=== PATIENT | female | born 2005 | race Caucasian/White ===

== ENCOUNTER 2024-02-01 21:38 | Emergency (ER) | payer SELFPAY ==
--- OUTSIDE RECORDS SUMMARY | 2024-02-01 21:41 | XMS REPORT | Continuity of Care Document ---
Author Name Unknown Address [address] [facility] [address] [place] [address] [facility] thconnect Address [address] [facility] 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 Ordering Clinician Indication Dosage Frequency Signature (SIG) Comments Components Source erythromyci n 5 mg/gram (0.5 %) eye ointment 08-01 00:00: 00 Yes 1(0.5 %) Aashish Roberson TAKE 1 TABLET DAILY. 2022-03 1 00:00: 00 08-01 00:00 :00 No 110 Aashish Roberson INJECT 1 ML INTRAMUSCUL SYED ONCE EVERY 3 MONTHS. 11-19 00:00: 00 08-01 00:00 :00 No 150 Aashish Roberson Vital Signs Vital Name Observation Time Observation Value Comments S ource BP Systolic 2023-08-26 15:03:00 113 mm[Hg] Scott Roberson BP Diastolic 2023-08-26 15:03:00 72 mm[Hg] [place] Roberson Weight Measured 2023-08-26 15:03:00 110.20 pounds Aashish Roberson Height Measured 2023-08-26 15:03:00 65.00 inches Aashish Roberson Body Temperature 2023-08-26 15:03:00 98.30 degrees Aashish Roberson Heart Rate 2023-08-26 15:03:00 63.00 /min Manuela en Miya Roberson Respiratory Rate 2023-08-26 15:03:00 19.00 /min Aashish Roberson BP Diastolic 2023-08-02 10:11:00 66 mm[Hg] [place] phen F Da Weight Measured 2023-08-02 10:11:00 112.40 pounds Aashish F Da Height Measured 2023-08-02 10:11:00 65.00 inches Aashish F Da Body Temperature 2023-08-02 10:11:00 97.40 degrees Aashish F Da Heart Rate 2023-08-02 10:11:00 102.00 /min Step hen F Da Respiratory Rate 2023-08-02 10:11:00 Aashish F Da BP Systolic 2023-08-02 10:11:00 109 mm[Hg] Step hen F Da BP Systolic 2023-06-06 16:34:00 107 mm[Hg] Step hen F Da BP Diastolic 2023-06-06 16:34:00 72 mm[Hg] [place] phen F Da Weight Measured 2023-06-06 16:34:00 158.73 pounds Aashish F Da Height Measured 2023-06-06 16:34:00 65.00 inches Aashish F Da Body Temperature 2023-06-06 16:34:00 98.10 degrees Aashish F Da Heart Rate 2023-06-06 16:34:00 63.00 /min Manuela en F Da Respiratory Rate 2023-06-06 16:34:00 16.00 /min Aashish F Da BP Systolic 2023-02-17 16:11:00 119 mm[Hg] Step hen F Da BP Diastolic 2023-02-17 16:11:00 69 mm[Hg] [place] phen F Da Weight Measured 2023-02-17 16:11:00 109.40 pounds Aashish F Da Height Measured 2023-02-17 16:11:00 65.00 inches Aashish F Da Body Temperature 2023-02-17 16:11:00 98.40 degrees Aashish F Da Heart Rate 2023-02-17 16:11:00 86.00 /min Manuela en F Da Respiratory Rate 2023-02-17 16:11:00 Aashish F Da BP Systolic 2022-11-19 13:55:00 130 mm[Hg] Step hen F Da BP Diastolic 2022-11-19 13:55:00 76 mm[Hg] [place] phen F Da Weight Measured 2022-11-19 13:55:00 106.60 pounds Aashish Roberson Height Measured 2022-11-19 13:55:00 65.00 inches Aashish Roberson Body Temperature 2022-11-19 13:55:00 98.00 degrees Aashish Roberson Heart Rate 2022-11-19 13:55:00 91.00 /min Manuela en F Da Respiratory Rate 2022-11-19 13:55:00 19.00 /min Aashish Roberson BP Systolic 2022-08-31 17:06:00 102 mm[Hg] Step hen F Da BP Diastolic 2022-08-31 17:06:00 60 mm[Hg] [place] Roberson Weight Measured 2022-08-31 17:06:00 104.60 pounds Aashish Roberson Height Measured 2022-08-31 17:06:00 Aashish Roberson Body Temperature 2022-08-31 17:06:00 97.30 degrees Aashish Roberson Heart Rate 2022-08-31 17:06:00 83.00 /min Manuela en F Da Respiratory Rate 2022-08-31 17:06:00 25.00 /min Aashish Roberson Encounters Start Date/Time End Date/Time Encounter Type Admission Type Attending [facility] Care Department Encounter ID Source 2023-08-26 14:57:57 2023-08-26 14:57:57 Outpatient [facility] [id number] Aashish Roberson 2023-08-26 00:00:00 2023-08-26 00:00:00 Outpatient Visit [facility] [id number] Aashish Roberson 2023-08-05 10:13:52 2023-08-05 10:13:52 Outpatient [facility] [id number] Aashish Roberson 2023-08-02 10:07:22 2023-08-02 10:07:22 Outpatient [facility] [id number] Aashish Roberson 2023-08-02 00:00:00 2023-08-02 00:00:00 Outpatient Visit [facility] [id number] Aashish Roberson 2023-06-06 16:27:54 2023-06-06 16:27:54 Outpatient [facility] [id number] Aashish Roberson 2023-02-17 16:11:12 2023-02-17 16:11:12 Outpatient [facility] [id number] Aashish Roberson 2022-11-19 13:47:12 2022-11-19 13:47:12 Outpatient [facility] [id number] Aashish Roberson 2022-11-05 13:07:31 2022-11-05 13:07:31 Outpatient [facility] [id number] Aashish Roberson 2022-08-31 17:01:44 2022-08-31 17:01:44 Outpatient [facility] [id number] Aashish Miya Da Notes Date/Time Note Provider Source Aashish Melgoza [facility]2024-05-14 00:00:00 Aashish Melgoza [facility]
[2024-02-01] MEDS ORDERED: NA CHLORIDE 0.9% 1,000 ML ONE (22:47)
[2024-02-02 00:44] LABS: Absolute Lymphocytes (CBC) 1.2 K/uL (0.7-4.9); Absolute Monocytes 0.5 K/uL (0.1-1.3); Absolute Neutrophil 5.3 K/uL (1.8-8.0); Basophils % 0.4 % (0-1.3); Eosinophils % 0.1 % (0-4.4); Hematocrit 51.3 % (36.0-45.0); Hemoglobin 17.2 g/dL (12.0-15.0); Lymphocytes % 16.6 % (15.3-44.8); MCHC 33.5 g/dL (32.0-36.0); MCV 92.6 fL (80-100); Monocytes % 7.6 % (3.3-12.3); Neutrophils % 75.3 % (41.7-73.7); Nucleated Red Blood Cells % 0.3 % (0-0); Platelets 237 thou/uL (152-406); RBC Red Blood Cell Count 5.54 M/uL (3.86-4.86); Red Cell Distribution Width 12.7 % (12.1-15.2)
[2024-02-02 00:58] LABS: Specific Gravity > 1.030 (1.005-1.030); Sqamous Epithelial <5 /HPF (None Seen); Urine Bacteria 20-50 /HPF (<20); Urine Bilirubin NEGATIVE (Negative); Urine Blood 3+ (OVER) (Negative); Urine Clarity Clear (Clear); Urine Color Colorless (Yellow); Urine Culture Reflex Order NOT NEEDED; Urine Glucose 4+ (Over) (Negative); Urine Ketones 4+ (Over) (Negative); Urine Microscopic Reflex YN ORDER UMIC; Urine Mucus Slight /HPF (None Seen); Urine Nitrite NEGATIVE (Negative); Urine Protein 2+ (Negative); Urine RBC <5 /HPF (None Seen); Urine Urobilinogen Normal (Normal); Urine pH 5.5 (5.0-7.0)
[2024-02-02 00:59] LABS: Specific Gravity > 1.030 (1.005-1.030)
[2024-02-02 01:14] LABS: Albumin 4.7 g/dL (3.4-5.0); Anion Gap 22.1 mEq/L (5.0-15.0); Bilirubin Total 0.4 mg/dL (0.2-1.0); Creatine Phosphokinase 89 U/L (26-192); Globulin 4.9 g/dL (2.3-3.5); Potassium 4.1 mEq/L (3.5-5.1); Protein, Total 9.6 g/dL (6.4-8.2)
[2024-02-02 01:15] LABS: BETA HYDROXYBUTYRATE > 4.50 mmol/L (0.02-0.27)
[2024-02-02] MEDS ORDERED: NA CHLORIDE 0.9% 1,000 ML ONE (01:21)
[2024-02-02] MEDS ORDERED: INSULIN REGULAR (HUMAN) 100 UNIT/ML ONE ×2 (02:13→05:11)
[2024-02-02] MEDS ORDERED: D5 0.9 NS 1,000 ML IV ONE (05:14)
[2024-02-02 07:13] LABS: Anion Gap 14.5 mEq/L (5.0-15.0); Potassium 3.5 mEq/L (3.5-5.1)
--- NOTE | 2024-02-02 07:18 | EDPHYS ---
Physician Documentation [facility] Name: Jigna Koenig Age: 18 yrs Sex: Female : 2005 Arrival Date: 02/01/2024 Time: 21:38 Bed 17 Private MD: ED Physician Darin Lambert HPI: 02/01 00:16 This 18 yrs old Female presents to ER via Ambulatory with complaints of Abdominal Pain, kb Nausea, Dizziness. 00:16 Pt is a 18 year old female who presents for high blood sugar. States she went to urgent kb care for nausea and dizziness that has been ongoing for 2 days. States they did a urine which showed a lot of glucose, then checked her sugar which was high so they sent her here for evaluation. Pt denies any medical history. . ACID TANK LINER: 01/31 21:47 LMP 01/27/2024, unknown tm6 Historical: - Allergies: 21:53 No Known Allergies; tm6 - PMHx: 21:53 scoliosis; tm6 - PSHx: 21:53 eye; tm6 - Immunization history:: Client reports having NOT received the Covid vaccine. - Infectious Disease History:: Denies. - Social history:: Smoking status: Reported history of juuling and/or vaping. - Family history:: not pertinent. ROS: 02/01 00:16 Constitutional: As per HPI kb 07:18 Constitutional: Negative for fever, chills, and weight loss, positive for generalized sp4 weakness, positive dizziness, positive dry mouth 07:18 All other systems are negative, Exam: 00:16 Constitutional: This is a well developed, well nourished patient who is awake, alert, kb and in no acute distress. Head/Face: Normocephalic, atraumatic. ENT: Moist Mucous membranes Cardiovascular: Tachycardia Respiratory: Respirations even and unlabored. No increased work of breathing. Talking in full sentences Abdomen/GI: Soft, non-tender. No distention Skin: Warm, dry with normal turgor. Normal color. MS/ Extremity: Pulses equal, no cyanosis. Neurovascular intact. Full, normal range of motion. Neuro: Awake and alert, GCS 15, oriented to person, place, time, and situation. 07:18 Constitutional: Thin appearing female with anorexic body type, ill-appearing, dry sp4 mouth, nontoxic-appearing Head/Face: Normocephalic, atraumatic. Eyes: Pupils equal round and reactive to light, extra-ocular motions intact. Lids and lashes normal. Conjunctiva and sclera are not injected. Cornea within normal limits. Periorbital areas with no swelling, redness, or edema. ENT: Nares patent. No nasal discharge, no septal abnormalities noted. Tympanic membranes are normal and external auditory canals are clear. Oropharynx with no redness, swelling, or masses, exudates, or evidence of obstruction, uvula midline. Mucous membranes moist. Neck: Trachea midline, no thyromegaly or masses palpated, and no cervical lymphadenopathy. Supple, full range of motion without nuchal rigidity, or vertebral point tenderness. Chest/axilla: Normal chest wall appearance and motion. Nontender with no deformity. No lesions are appreciated. Cardiovascular: Regular rate and rhythm with a normal S1 and S2. No gallops, murmurs, or rubs. Normal PMI, no JVD. No pulse deficits. Respiratory: Lungs have equal breath sounds bilaterally, clear to auscultation and percussion. No rales, rhonchi or wheezes noted. No increased work of breathing, no retractions or nasal flaring. Abdomen/GI: Soft, with normal bowel sounds. No distension or tympany. No guarding or rebound. No evidence of tenderness throughout. Back: No spinal tenderness. No costovertebral tenderness. Skin: Warm, dry with normal turgor. Normal color with no rashes, no lesions, and no evidence of cellulitis. MS/ Extremity: Pulses equal, no cyanosis. Neurovascular intact. Full, normal range of motion. Neuro: Awake and alert, GCS 15, oriented to person, place, time, and situation. Cranial nerves II-XII grossly intact. Motor strength 5/5 in all extremities. Sensory grossly intact. Psych: Awake, alert, with orientation to person, place and time. Behavior, mood, and affect are within normal limits Vital Signs: 01/31 21:46 BP 134 / 93; Pulse 138; Resp 28; Temp 97.5(O); Pulse Ox 99% on R/A; MAP 107 mmHg; tm6 21:52 Weight 44.45 kg; Height 5 ft. 4 in. ; Pain 0/10; tm6 02/01 02:24 BP 131 / 81; Pulse 97; Resp 16; Pulse Ox 100% on R/A; rv1 01/31 21:52 Body Mass Index 16.82 (44.45 kg, 162.56 cm) tm6 21:52 Pain Scale: Adult tm6 Selene Coma Score: 07:18 Eye Response: spontaneous(4). Motor Response: obeys commands(6). Verbal Response: sp4 oriented(5). Total: 15. MDM: 01/31 21:42 Medical Screening Exam initiated kb 02/01 00:18 Differential diagnosis: hyperglycemia, DKA, new onset diabetes. Data reviewed: vital kb signs, nurses notes. 00:53 Transition of care: After a detail discussion of the patient's case, care is kb transferred to Darin Lambert MD. 07:18 Differential diagnosis: Nonspecific abd pain, gastritis, cholecystitis, pancreatitis, sp4 viral gastroenteritis, gastroenteritis. Consideration of Admission/Observation Patient was admitted/placed on observation. Escalation of care including admission/observation considered. Management of patient was discussed with the following: Hospitalist: Admit team . ED course: Patient was given IV insulin bolus with improvement in anion gap. Patient did not improve as well as hoped and then was initiated on insulin infusion . Will be admitted to intensive care unit for further management.. 01/31 21:55 Order name: CBC with Diff; Complete Time: 02:04 kb 01/31 21:55 Order name: CMP; Complete Time: 02:04 kb 01/31 21:55 Order name: Test, Urine; Complete Time: 02:04 kb 01/31 21:55 Order name: Urinalysis w/ reflexes; Complete Time: 02:04 kb 01/31 22:03 Order name: Glucose, Ancillary Testing; Complete Time: 22:03 EDMS 02/01 00:51 Order name: BETA HYDROXYBUTYRATE; Complete Time: 02:04 sp4 02/01 00:51 Order name: CK; Complete Time: 02:04 sp4 02/01 03:19 Order name: BMP; Complete Time: 05:09 sp4 02/01 03:59 Order name: Glucose, Ancillary Testing; Complete Time: 05:09 EDMS 02/01 06:32 Order name: BMP; Complete Time: 07:43 sp4 02/01 08:38 Order name: Glucose, Ancillary Testing EDMS 02/01 09:22 Order name: Glucose, Ancillary Testing EDMS 02/01 09:55 Order name: Glucose, Ancillary Testing EDMS 02/01 10:47 Order name: Glucose, Ancillary Testing [facility] 01/31 21:55 Order name: IV Start; Complete Time: 00:25 kb Administered Medications: 00:39 Drug: NS 0.9% IV 1000 ml IV at 1000 ml once; to be given as a bolus over 60 minutes lg3 Route: IV; Rate: 1000 ml; Site: right antecubital; 01:34 Follow up: Response: No adverse reaction; IV Status: Completed infusion; IV Intake: lg3 1000ml 01:34 Drug: NS IV 0.45 % 1000 ml IV at 125 ml/hr continuous Route: IV; Rate: 125 ml/hr; Site: lg3 left antecubital; 05:24 Follow up: Response: No adverse reaction; IV Status: Completed infusion; IV Intake: lg3 1000ml ; given as bolus per MD 02:15 Drug: Insulin Regular Human IVP 10 units IVP once {Co-Signature: bm8 (Temo Guzman lg3 RN).} Route: IVP; Site: right antecubital; 05:25 Follow up: Response: No adverse reaction; Blood sugar is lowered lg3 05:23 Drug: Insulin Regular Human IVP 5 units IVP once {Co-Signature: kb3 (Lesly Villeda lg3 RN).} Route: IVP; Site: right antecubital; 05:24 Drug: D5-NS IV 1000 ml IV at 125 ml/hr continuous Route: IV; Rate: 125 ml/hr; Site: lg3 right antecubital; 08:30 Drug: Insulin Drip - (Insulin Regular Human IVP 100 units, NS 0.9% IV 100 ml) IV at aa5 calculated rate continuous; Standard concentration 1unit/ml; Dose for DKA is 0.1 units/kg/hr {Co-Signature: rs5 (Catalino Sethi RN).} Route: IV; Rate: calculated rate; Site: right antecubital; 08:30 Follow up: Drip started at 4units/hr aa5 09:43 Follow up: Rate increased to 5units/hr per protocol aa5 Point of Care Testing: Blood Glucose: 01/31 21:47 Blood Glucose: 394 mg/dL; tm6 11/14 08:26 Blood Glucose: 255 mg/dL; aa5 09:09 Blood Glucose: 261 mg/dL; aa5 09:43 Blood Glucose: 257 mg/dL; aa5 10:27 Blood Glucose: 199 mg/dL; aa5 Ranges: Critical Glucose Levels:Adult <50 mg/dl or >400 mg/dl <40 mg/dl or >180 mg/dl Disposition: 03:21 Co-signature as Attending Physician, Darin Lambert MD I agree with the assessment sp4 and plan of care. I reviewed the patient's care provided by Advanced Practice Provider \T\ agree w/ the diagnosis \T\ care plan. I personally saw the pt \T\ performed a substantive portion of the visit, incldng all aspects of the (History/Exam/Medical Decision Making). Disposition Summary: 02/02/24 08:09 Transfer Ordered Notes: Transfer Location: [facility] sp4 Reason: Higher level of care sp4 Condition: Stable(02/02/24 08:09) sp4 Problem: new(02/02/24 08:09) sp4 Symptoms: have improved(02/02/24 08:09) sp4 Accepting Physician: [facility]'s attending MD(02/02/24 10:55) aa5 Diagnosis - Acute diabetic ketoacidosis, new onset diabetes mellitus type 1 sp4 Forms: - Medication Reconciliation Form sp4 - SBAR form sp4 Critical care time excluding procedures: 07:15 Critical care time: Bedside Care: 36 minutes, Consultation: 12 minutes, Family sp4 Intervention: 12 minutes. Total time: 60 minutes Signatures: Dispatcher [employer] Vianca Ordonez, CHERRY PITTER-C CHERRY PITTER-CkKatrin Dooley, RN RN aa5 Harini Pires, RN RN Darin Levy MD MD sp4 Nayana Mcgrath RN RN tm6 Temo Guzman RN bm8 Lesly Villeda RN kb3 Catalino Sethi RN rs5 Corrections: (The following items were deleted from the chart) 01/31 21:56 21:55 CBC+H.LAB.BRZ ordered. EDMS EDMS 21:56 21:56 COMPREHENSIVE METABOLIC PANEL+C.LAB.BRZ ordered. EDMS EDMS 21:56 21:56 Test, Urine+UC.LAB.BRZ ordered. EDMS EDMS 21:56 21:56 Urinalysis+U.LAB.BRZ ordered. EDMS EDMS 02/01 00:52 00:52 CREATINE PHOSPHOKINASE+C.LAB.BRZ ordered. EDMS EDMS 08:08 07:17 Inpatient Admission sp4 sp4 08:08 07:17 Everardo Osborn sp4 sp4 08:08 07:17 Intensive Care Unit sp4 sp4 08:08 07:17 Serious sp4 sp4 08:08 07:17 new sp4 sp4 08:08 07:17 have improved sp4 sp4 08:08 07:17 Standard sp4 sp4 08:08 07:17 sp4 sp4 08:08 07:17 New onset diabetes mellitus type 1, Diabetic ketoacidosis sp4 sp4 10:55 08:09 [facility] attending sp4 aa5
--- NOTE | 2024-02-02 07:18 | ER ---
Nurse's Notes [facility] Name: Jigna Koenig Age: 18 yrs Sex: Female : 2005 Arrival Date: 02/01/2024 Time: 21:38 Bed 17 Private MD: Diagnosis: Acute diabetic ketoacidosis, new onset diabetes mellitus type 1 Presentation: 01/31 21:47 Chief complaint: Patient states: I have been having dizzy spells, almost fainting for tm6 about 4 days. I went to urgent care, they said I have a lot of sugar in my urine and sent me here to get checked out. I have also had nausea for about 4 days. 21:52 Coronavirus screen: Client denies travel out of the [place] in the last 14 days. Ebola tm6 Screen: Patient negative for fever greater than or equal to 101.5 degrees Fahrenheit, and additional compatible Ebola Virus Disease symptoms Patient denies exposure to infectious person. Patient denies travel to an Ebola-affected area in the 21 days before illness onset. No symptoms or risks identified at this time. Initial Sepsis Screen: Does the patient meet any 2 criteria? RR > 20 per min. HR > 90 bpm. Does the patient have a suspected source of infection? No. Patient's initial sepsis screen is negative. Risk Assessment: Do you want to hurt yourself or someone else? Patient reports no desire to harm self or others. Onset of symptoms was January 28, 2024. 21:52 Method Of Arrival: Ambulatory tm6 21:52 Acuity: DIYA 2 tm6 Triage Assessment: 21:53 General: Appears in no apparent distress. Behavior is calm, cooperative. Pain: Denies tm6 pain. EENT: No signs and/or symptoms were reported regarding the EENT system. Neuro: Level of Consciousness is awake, alert, obeys commands, Oriented to person, place, time, situation, Reports dizziness, since 4 days ago. Cardiovascular: Patient's skin is warm and dry. Respiratory: Airway is patent Respiratory effort is even, unlabored, Respiratory pattern is regular, symmetrical. GI: Abdomen is flat, non-distended, Reports nausea, since 4 days ago. : No signs and/or symptoms were reported regarding the genitourinary system. Derm: No signs and/or symptoms reported regarding the dermatologic system. Musculoskeletal: No signs and/or symptoms reported regarding the musculoskeletal system. [employer]: 21:47 LMP 01/27/2024, unknown tm6 Historical: - Allergies: 21:53 No Known Allergies; tm6 - PMHx: 21:53 scoliosis; tm6 - PSHx: 21:53 eye; tm6 - Immunization history:: Client reports having NOT received the Covid vaccine. - Infectious Disease History:: Denies. - Social history:: Smoking status: Reported history of juuling and/or vaping. - Family history:: not pertinent. Screenin:50 [facility] ED Fall Risk Assessment (Adult) History of falling in the last 3 months, lg3 including since admission No falls in past 3 months (0 pts) Confusion or Disorientation No (0 pts) Intoxicated or Sedated No (0 pts) Impaired Gait No (0 pts) Mobility Assist Device Used No (0 pt) Altered Elimination No (0 pt) Score/Fall Risk Level 0 - 2 = Low Risk Oriented to surroundings, Maintained a safe environment, Educated pt \T\ family on fall prevention, incl call for assistance when getting out of bed, Assessed \T\ reinforced patient's understanding of fall precautions. Abuse screen: Denies threats or abuse. Denies injuries from another. Nutritional screening: No deficits noted. Tuberculosis screening: No symptoms or risk factors identified. Assessment: 22:50 General: Appears in no apparent distress. comfortable, Behavior is calm, cooperative. lg3 Pain: Complains of pain in abdomen Pain does not radiate. Pain currently is 3 out of 10 on a pain scale. Quality of pain is described as crampy. Neuro: No deficits noted. [place]ley Agitation-Sedation Scale (RASS): 0 - Alert and Calm Level of Consciousness is awake, alert, obeys commands, Oriented to person, place, time, situation, Reports dizziness. Cardiovascular: No deficits noted. Denies chest pain, shortness of breath, Capillary refill < 3 seconds Clubbing of nail beds is absent JVD is absent Patient's skin is warm and dry. Respiratory: No deficits noted. Airway is patent Respiratory effort is even, unlabored, Respiratory pattern is regular, symmetrical. GI: Abdomen is flat, non-distended, Bowel sounds present X 4 quads. Abd is soft and non tender X 4 quads. : No signs and/or symptoms were reported regarding the genitourinary system. EENT: No deficits noted. No signs and/or symptoms were reported regarding the EENT system. Derm: No deficits noted. No signs and/or symptoms reported regarding the dermatologic system. Skin is intact, is healthy with good turgor, Skin is dry, Skin is normal, Skin temperature is warm. Musculoskeletal: No deficits noted. No signs and/or symptoms reported regarding the musculoskeletal system. Circulation, motion, and sensation intact. Range of motion: intact in all extremities. 02/01 02:39 Reassessment: Patient appears in no apparent distress at this time. No changes from lg3 previously documented assessment. Patient and/or family updated on plan of care and expected duration. Pain level reassessed. Patient is alert, oriented x 3, equal unlabored respirations, skin warm/dry/pink. Patient states feeling better. Patient states symptoms have improved. 07:31 Reassessment: Patient and/or family updated on plan of care and expected duration. Pain ap3 level reassessed. Patient is alert, oriented x 3, equal unlabored respirations, skin warm/dry/pink. ambulated patient to ER room 17. patient ambulated well without incident. 07:53 Reassessment: Awaiting insulin drip from pharmacy, hospitalist currently at bedside. . aa5 Vital Signs: 01/31 21:46 BP 134 / 93; Pulse 138; Resp 28; Temp 97.5(O); Pulse Ox 99% on R/A; MAP 107 mmHg; tm6 21:52 Weight 44.45 kg; Height 5 ft. 4 in. ; Pain 0/10; tm6 02/01 02:24 BP 131 / 81; Pulse 97; Resp 16; Pulse Ox 100% on R/A; rv1 01/31 21:52 Body Mass Index 16.82 (44.45 kg, 162.56 cm) tm6 21:52 Pain Scale: Adult tm6 [place] Coma Score: 07:18 Eye Response: spontaneous(4). Motor Response: obeys commands(6). Verbal Response: sp4 oriented(5). Total: 15. ED Course: 01/31 21:41 Patient arrived in ED. mr 21:42 [facility]C [facility] kb 21:42 Darin Lambert MD is Attending Physician. kb 21:53 Triage completed. tm6 21:53 Arm band placed on right wrist. tm6 22:50 Patient has correct armband on for positive identification. Warm blanket given. Pillow lg3 given. Family accompanied patient. 22:50 Patient maintains SpO2 saturation greater than 95% on room air. lg3 23:19 Missed attempt(s): 22 gauge in left antecubital area. Bleeding controlled, band aid lg3 applied, catheter tip intact. 23:19 Missed attempt(s): 22 gauge in right antecubital area. Bleeding controlled, band aid lg3 applied, catheter tip intact. 02/01 00:25 Inserted saline lock: 22 gauge in right antecubital area, using aseptic technique. lg3 Blood collected. Flushed with 10 mL NS. 07:17 Everardo Osborn is Hospitalizing Provider. sp4 07:32 Client placed on continuous cardiac and pulse oximetry monitoring. NIBP monitoring ap3 applied. professor of literacy on. Pulse ox on. NIBP on. 07:38 Katrin Angel, RN is Primary Nurse. aa5 08:17 Transfer initiated with [facility]. em1 Administered Medications: 00:39 Drug: NS 0.9% IV 1000 ml IV at 1000 ml once; to be given as a bolus over 60 minutes lg3 Route: IV; Rate: 1000 ml; Site: right antecubital; 01:34 Follow up: Response: No adverse reaction; IV Status: Completed infusion; IV Intake: lg3 1000ml 01:34 Drug: NS IV 0.45 % 1000 ml IV at 125 ml/hr continuous Route: IV; Rate: 125 ml/hr; Site: lg3 left antecubital; 05:24 Follow up: Response: No adverse reaction; IV Status: Completed infusion; IV Intake: lg3 1000ml ; given as bolus per MD 02:15 Drug: Insulin Regular Human IVP 10 units IVP once {Co-Signature: bm8 (Temo Guzman lg3 RN).} Route: IVP; Site: right antecubital; 05:25 Follow up: Response: No adverse reaction; Blood sugar is lowered lg3 05:23 Drug: Insulin Regular Human IVP 5 units IVP once {Co-Signature: kb3 (Lesly Villeda lg3 RN).} Route: IVP; Site: right antecubital; 05:24 Drug: D5-NS IV 1000 ml IV at 125 ml/hr continuous Route: IV; Rate: 125 ml/hr; Site: lg3 right antecubital; 08:30 Drug: Insulin Drip - (Insulin Regular Human IVP 100 units, NS 0.9% IV 100 ml) IV at aa5 calculated rate continuous; Standard concentration 1unit/ml; Dose for DKA is 0.1 units/kg/hr {Co-Signature: rs5 (Catalino Sethi RN).} Route: IV; Rate: calculated rate; Site: right antecubital; 08:30 Follow up: Drip started at 4units/hr aa5 09:43 Follow up: Rate increased to 5units/hr per protocol aa5 Point of Care Testing: Blood Glucose: 01/31 21:47 Blood Glucose: 394 mg/dL; tm6 02/01 08:26 Blood Glucose: 255 mg/dL; aa5 09:09 Blood Glucose: 261 mg/dL; aa5 09:43 Blood Glucose: 257 mg/dL; aa5 10:27 Blood Glucose: 199 mg/dL; aa5 Ranges: Intake: 01:34 IV: 1000ml; Total: 1000ml. lg3 05:24 IV: 1000ml; Total: 2000ml. lg3 Outcome: 07:17 Decision to Hospitalize by Provider. sp4 08:09 ER care complete, transfer ordered by . sp4 10:55 Patient left the ED. aa5 Signatures: Vianca Diaz, ANIMAL HOSPITAL CLERK-C ANIMAL HOSPITAL CLERK-Ckb TomlinsonMabel jeffery, Reg Reg Fercho Pyle em1 Katrin Angel, RN RN aa5 Irma Hester RN RN [email or web address] Harini Pires RN RN [email or web address] Reyna Coffman Sergey, MD MD sp4 Nayana Mcgrath RN RN tm6 Temo Guzman RN bm8 Lesly Villeda RN kb3 Catalino Sethi RN rs5 Corrections: (The following items were deleted from the chart) 09:48 08:30 Insulin Drip - (Insulin Regular Human IVP 100 units, NS 0.9% IV 100 ml) IV at aa5 calculated rate in left antecubital aa5
[2024-02-02] MEDS ORDERED: INSULIN REGULAR, HUMAN 100 UNIT in NA CHLORIDE 0.9% 100 ML IV SCH (08:00)
[2024-02-02 11:05] VITALS: TEMP 97.5
[2024-02-02 11:16] VITALS: BP 131/81; O2SAT 100
== END 2024-02-02 10:55 | disposition short-term general hospital (02) ==
LOC: ER 21:38
DX: E10.10 Type 1 diabetes mellitus with ketoacidosis without coma (principal); Z28.310 Unvaccinated for COVID-19
CPT/HCPCS: 36415; 80048; 80053; 81001; 81025; 82010; 82550; 82947; 85025; J7030; J7042